=== PATIENT | male | born 1945 | race Caucasian/White ===

== ENCOUNTER 2017-04-10 22:01 | Emergency (ER) | payer MEDICARE ==
[~2017-04-10] VITALS: Ht 175.3 cm; Wt 114.0 kg
[~2017-04-10 22:01] MED LIST: BENI20TA26 PO; CARV3.125 PO; COUM1TAB PO; ROSU5 PO
[2017-04-10 22:50] VITALS: BP 183/84; PULSE 65; RESP 16; TEMP 98.2; O2SAT 97
[2017-04-11 00:12] VITALS: BP 183/84; PULSE 65; RESP 16; TEMP 98.2
[2017-04-11] MEDS ORDERED: KETOROLAC TROMETHAMINE 60 MG/2 ML (IM) VIAL IM ONE (00:30)
[2017-04-11] MEDS ORDERED: methylPREDNISolone SOD SUCC 125 MG/2 ML VIAL IM ONE (00:30)
[2017-04-11] MEDS ORDERED: ORPHENADRINE INJ 60 MG/2 ML AMP IM ONE (00:30)
[2017-04-11 00:33] VITALS: BP 186/94
--- NOTE | 2017-04-11 01:04 | RADRPT ---
EXAM DATE/TIME: 04/11/2017 00:42 [place] COMPARISON: No previous studies available for comparison. INDICATIONS : Patient states severe lower back pain from unknown injury. MEDICAL HISTORY : None. SURGICAL HISTORY : None. ENCOUNTER: Initial ACUITY: 1 day PAIN SCORE: 10/10 LOCATION: Left lower back. FINDINGS: No appreciable compression deformities, spondylolisthesis, or spondylolysis is seen. Slight degenera tive changes are seen within the disc space and facets. Chronic atherosclerotic calcifications are se en without any definite aneurysmal dilatations for technique. CONCLUSION: Chronic changes. Emily Lara MD on April 11, 2017 at 1:02 Board Certified Radiologist. This report was verified electronically.
--- NOTE | 2017-04-11 01:28 | PD ---
HPI Chief Complaint: Musculoskeletal Complaint Time Seen by Provider: 00:16 Travel History International Travel<30 days: No Contact w/Intl Traveler<30days: No Traveled to known affect area: No History of Present Illness HPI This is a 71-year-old male who presents to the emergency Department with onset today of left-sided low back pain, constant, severe, worse with sitting up and standing, improved with rest wrapping around and radiating down to the knee. It 's a shooting pain. He denies any numbness or weakness. He's had sciatica on the right side before. He denies any recent injuries. PFSH Past Medical History Atrial Fibrillation: Yes High Cholesterol: Yes Coronary Artery Disease: Yes Hypertension: Yes Tetanus Vaccination: Unknown Influenza Vaccination: Yes Past Surgical History Abdominal Surgery: Yes (umbilical hernia repair) Coronary Artery Bypass Graft: Yes Social History Alcohol Use: Yes (Socially) Tobacco Use: No Substance Use: No Allergies-Medications (Allergen,Severity, Reaction): Coded Allergies: No Known Allergies (Verified Adverse Reaction, Unknown, 04/11/17) Reported Meds & Prescriptions Reported Meds & Active Scripts Active Reported Crestor (Rosuvastatin Calcium) 5 Mg Tab 0 PO DAILY Benicar Hct (Olmesartan/HCTZ) 20 Mg/12.5 Mg Tab 0 PO UNKNOWN DOSE Coumadin 1 mg (Warfarin Sodium) 1 Mg Tab 0 PO DAILY unknown dose Review of Systems Except as stated in HPI: all other systems reviewed are Neg Physical Exam Narrative GENERAL:Well appearing, no acute distress SKIN: Focused skin assessment warm and dry. HEAD: Atraumatic. Normocephalic. EYES: Pupils equal and round. No injection or drainage. ENT: Moist mucous membranes NECK: Trachea midline. CARDIOVASCULAR: Regular rate and rhythm. No murmur appreciated. 2+ bilateral DP pulses with normal capillary refill. RESPIRATORY: Clear to auscultation. Breath sounds equal bilaterally. GASTROINTESTINAL: Abdomen soft, non-tender, nondistended. MUSCULOSKELETAL: Tender to palpation along the left lateral gluteus muscle. Negative straight leg raise test on both sides. NEUROLOGICAL: Awake and alert. No obvious cranial nerve deficits. Moving all extremities. Sensation is grossly intact in both feet. PSYCHIATRIC: Appropriate mood and affect; insight and judgment normal. Data Data Last Documented VS Vital Signs Date Time Temp Pulse Resp B/P (MAP) Pulse Ox O2 Delivery O2 Flow Rate FiO2 04/11/17 00:33 186/94 (124) 04/11/17 00:12 98.2 65 16 04/10/17 22:50 97 Orders Orders Spine, Lumbar - Ltd (Ap & Lat) (04/11/17 ) Methylprednisolone So Succ Inj (Solumedr (04/11/17 00:30) Orphenadrine Inj (Norflex Inj) (04/11/17 00:30) Ketorolac Inj (Toradol Inj) (04/11/17 00:30) MDM Medical Decision Making Medical Screen Exam Complete: Yes Emergency Medical Condition: Yes Interpretation(s) Last 24 hours Impressions Lumbar Spine X-Ray 04/11/17 0000 Signed Impressions: Service Date/Time: March 00:42 - CONCLUSION: Chronic changes. Emily Lara MD Differential Diagnosis Lumbosacral radiculopathy, cauda equina syndrome, herniated disc, compression fracture, cancer Narrative Course This is a 71-year-old male who presents to the emergency department with left- sided low back pain that radiates down to his left leg. His symptoms are classic for lumbosacral radiculopathy. He has no red flag symptoms for cauda equina syndrome. X-ray was obtained which is reassuring. Patient was given anti-inflammatories, steroids and Norflex and feels some improvement. Patient will be discharged with muscle relaxer and Medrol Dosepak. He was also told to take Zantac for ulcer prevention and he was asked to follow-up with orthopedics as an outpatient. Diagnosis Primary Impression: Lumbosacral radiculopathy Patient Instructions: General Instructions Additional Instructions: If you develop weakness of your legs, difficulty walking, numbness of your legs or your genital or rectal area, loss of your bowel or bladder, or difficulty urinating return to the emergency department immediately. Followup with your primary care physician in one week if your symptoms have not improved. Med/Other Pt SpecificInfo: Prescription(s) given Scripts Ranitidine (Ranitidine) 150 Mg Tab 150 MG PO BID for Heartburn Management, #60 TAB 0 Refills Prov: Yadi Gamez MD 04/11/17 Cyclobenzaprine (Flexeril) 5 Mg Tab 5 MG PO TID for Muscle Spasm, #20 TAB 0 Refills Prov: Highet,Yadi H. MD 04/11/17 Methylprednisolone Dosepak (Medrol Dosepak) 4 Mg Dspk 4 MG PO DIRECTED, #1 DSPK 0 Refills Per Pharmacist direction Prov: Yadi Gamez MD 04/11/17 Disposition: 01 DISCHARGE HOME Condition: Stable Yadi Gamez MD Apr 11, 2017 01:28
[2017-04-11] MEDS ORDERED: MEDR4PAK PO (01:34)
[2017-04-11] MEDS ORDERED: CYCL5TAB PO (01:34)
[2017-04-11] MEDS ORDERED: RANI150T PO (01:34)
[2017-04-11 01:39] VITALS: RESP 18
[2017-04-11 01:44] VITALS: BP 172/92
== END 2017-04-11 01:47 | disposition home or self-care (01) ==
LOC: PHED 22:01
DX: M54.17 Radiculopathy, lumbosacral region (principal); I48.91 Unspecified atrial fibrillation; E78.00 Pure hypercholesterolemia, unspecified; I25.10 Atherosclerotic heart disease of native coronary artery without angina pectoris; I10 Essential (primary) hypertension; Z79.01 Long term (current) use of anticoagulants; Z79.899 Other long term (current) drug therapy
CPT/HCPCS: 72100; 96372; 99284; J1885; J2360; J2930

== ENCOUNTER 2017-04-13 09:51 | Emergency (ER) | payer MEDICARE ==
[~2017-04-13] VITALS: Ht 175.3 cm; Wt 118.0 kg
[~2017-04-13 09:51] MED LIST changes: -CARV3.125 PO; +CYCL5TAB PO; +MEDR4PAK PO; +RANI150T PO
[2017-04-13 09:54] VITALS: BP 192/86; PULSE 71; RESP 16; TEMP 98.2; O2SAT 97
[2017-04-13] MEDS ORDERED: HYDR-3516 PO (10:21)
--- NOTE | 2017-04-13 10:23 | PD ---
HPI Chief Complaint: Musculoskeletal Complaint Time Seen by Provider: 09:59 Travel History International Travel<30 days: No Contact w/Intl Traveler<30days: No Traveled to known affect area: No History of Present Illness HPI 71-year-old male presents to the emergency department complaining of a persistent left sciatica pain for 3 days. Patient states that he went to the emergency department the day of onset and received an x-ray there is no apparent fracture. States that he has been taking medication as prescribed but his pain continues to worsen. Denies loss of bowel or bladder function, saddle anesthesia, fever, chills, history of IV drug use, cancer. Denies significant weakness. He has are here because they're concerned about the sciatica pain and believe that is something more serious. States he has an appointment with the orthopedic doctor on Saturday. He is also concerned about intense pain that is keeping him up at night. PFSH Past Medical History Atrial Fibrillation: Yes High Cholesterol: Yes Coronary Artery Disease: Yes Hypertension: Yes Past Surgical History Abdominal Surgery: Yes (umbilical hernia repair) Coronary Artery Bypass Graft: Yes Social History Alcohol Use: Yes (Socially) Tobacco Use: No Substance Use: No Allergies-Medications (Allergen,Severity, Reaction): Coded Allergies: No Known Allergies (Verified Adverse Reaction, Unknown, 04/13/17) Reported Meds & Prescriptions Reported Meds & Active Scripts Active Hydrocodone-Acetaminophen 5-325 mg Tab 1 Tab PO Q6H PRN 5 Days Ranitidine (Ranitidine HCl) 150 Mg Tab 150 Mg PO BID Flexeril (Cyclobenzaprine HCl) 5 Mg Tab 5 Mg PO TID Medrol Dosepak (Methylprednisolone) 4 Mg Dspk 4 Mg PO DIRECTED Per Pharmacist direction Review of Systems Except as stated in HPI: all other systems reviewed are Neg Physical Exam Narrative GENERAL: Well-developed well-nourished in mild distress SKIN: Warm and dry. HEAD: Normocephalic. EYES: No scleral icterus. No injection or drainage. NECK: Supple, trachea midline. No JVD or lymphadenopathy. CARDIOVASCULAR: Regular rate and rhythm without murmurs, gallops, or rubs. RESPIRATORY: Breath sounds equal bilaterally. No accessory muscle use. MUSCULOSKELETAL: No cyanosis, or edema. Left glut- significant muscle spasms to the area that extends into the hamstrings. Mild TTP. Neurovascularly intact bilateral lower extremities BACK: No CVA tenderness. No rash. No point tenderness on palpation of the spine. Data Data Last Documented VS Vital Signs Date Time Temp Pulse Resp B/P (MAP) Pulse Ox O2 Delivery O2 Flow Rate FiO2 04/13/17 09:54 98.2 71 16 192/86 (121) 97 Orders Orders Ed Discharge Order (04/13/17 10:23) MDM Medical Decision Making Medical Screen Exam Complete: Yes Emergency Medical Condition: Yes Differential Diagnosis Lumbago, sciatica, lumbar radiculopathy, muscle spasms Narrative Course 71-year-old male presents to the emergency department complaining of a persistent left sciatica pain for 3 days. Patient states that he went to the emergency department the day of onset and received an x-ray there is no apparent fracture. States that he has been taking medication as prescribed but his pain continues to worsen. Denies loss of bowel or bladder function, saddle anesthesia, fever, chills, history of IV drug use, cancer. Denies significant weakness. He has are here because they're concerned about the sciatica pain and believe that is something more serious. States he has an appointment with the orthopedic doctor on Saturday. He is also concerned about intense pain that is keeping him up at night. Vital signs stable. Physical exam findings consistent with muscle spasms likely contributing to his sciatica pain. Reassured patient and . Hydrocodone prescribed for his pain. EFORSCE without evidence of previous prescriptions. Patient advised to follow-up with orthopedic doctor as discussed. Strongly advised patient to stretch and to continue using heat for relief of the muscle spasms. Follow-up with primary care within 2-3 days. Return to the emergency department for worsening or persistent symptoms. Diagnosis Primary Impression: Sciatica Qualified Codes: M54.32 - Sciatica, left side Referrals: Orthopedist Additional Instructions: Use pain medication sparingly. May continue the medications previously prescribed but use extreme caution when combining these medications as a may cause drowsiness. Perform light stretches of the lower back and legs, and alternate heat and ice packs. If you develop increased pain, weakness, fever, chills, or bowel or bladder issues, return to the ED for further treatment and evaluation. Follow up with your primary care physician in 2-3 days. Scripts Hydrocodone-Acetaminophen (Hydrocodone-Acetaminophen) 5-325 mg Tab 1 TAB PO Q6H Y for PAIN for 5 Days, #15 TAB 0 Refills Prov: Howard Hagan MD 04/13/17 Disposition: 01 DISCHARGE HOME Condition: Stable Hollie Boateng Apr 13, 2017 10:23
== END 2017-04-13 10:35 | disposition home or self-care (01) ==
LOC: PHEFT 09:51
DX: M54.32 Sciatica, left side (principal); M62.838 Other muscle spasm; I10 Essential (primary) hypertension; E78.00 Pure hypercholesterolemia, unspecified; Z86.79 Personal history of other diseases of the circulatory system
CPT/HCPCS: 99283